=== PATIENT | female | born 1985 | race Caucasian/White ===

== ENCOUNTER 2022-06-14 14:48 | Emergency (ER) | payer OTHER, SELFPAY ==
[2022-06-14] VITALS (26 sets, daily range): BP systolic 95–126; BP diastolic 60–79; PULSE 71–97; RESP 13–29; TEMP 37; O2SAT 94–99
--- NOTE | ~2022-06-14 | XR_ITS ---
EXAMINATION: XR chest 2V DATE: 06/14/2022 15:39 INDICATION: Chest pain TECHNIQUE: Frontal and lateral views of the chest are obtained COMPARISON: None available FINDINGS: The lungs are free of acute opacities. No pleural effusion or pneumothorax. The cardiomedia stinal silhouette is normal. There is mild thoracic spondylosis. Surgical clips in the right upper qu adrant are likely from prior cholecystectomy. IMPRESSION: 1. No acute cardiopulmonary abnormality. Reviewed, dictated and finalized at location F.
--- NOTE | ~2022-06-14 | CT_ITS ---
EXAMINATION: CTA chest PE protocol DATE: 06/14/2022 19:13 INDICATION: Chest pain TECHNIQUE: Computed tomography angiography (CTA) of the chest was performed with 100 mL Omnipaque-350 intravenous contrast timed to evaluate the pulmonary arteries. Coronal maximum intensity projection 3D-reconstructions were created by the technologist. The dose-length product (DLP) was 359.56 mGy-cm. Automated exposure control and iterative reconstruction technique were employed. COMPARISON: None. FINDINGS: The pulmonary arteries are well-opacified. No pulmonary embolism is identified. The lungs a re free of acute opacities. No pleural effusion or pneumothorax. No pathologically enlarged thoracic lymph nodes are identified. The heart size is normal. IMPRESSION: 1. No pulmonary embolism or acute cardiopulmonary abnormality. Reviewed, dictated and finalized at location F.
--- NOTE | 2022-06-14 14:56 | ECG_ITS ---
Measurements Intervals [place] Rate: 92 P: 33 ME: 131 QRS: 71 QRSD: 86 T: 38 QT: 357 QTc: 444 Interpretive Statements SINUS RHYTHM NO PREVIOUS ECG AVAILABLE FOR COMPARISON Electronically Signed On 06-14-2022 19:49:50 CDT by Brandie Rainey M.D.
[2022-06-14 15:04] LABS: Basophils Percent Auto 0.3 % (0.2-1.2); Eosinophils Absolute Auto 0.1 K/mm3 (0-0.3); Hematocrit 37.6 % (37.0-47.0); Hemoglobin 12.2 g/dL (12.0-15.0); Immature Granulocyte Absolute 0.01 K/mm3 (0.00-0.031); Immature Granulocyte Percent A 0.2 % (0-0.5); Lymphocytes Absolute Auto 0.82 K/mm3 (0.9-3.2); Lymphocytes Percent Auto 12.6 % (18.3-44.2); Mean Corpuscular HGB Conc 32.4 g/dl (32-36); Mean Corpuscular Hemoglobin 28.1 pg (26-34); Mean Corpuscular Volume 86.6 fl (80-100); Mean Platelet Volume 11.9 fl (7.4-10.4); Monocytes Absolute Auto 0.5 K/mm3 (0.1-0.6); Monocytes Percent Auto 7.7 % (2.6-8.5); Neutrophils Percent Auto 77.2 % (45.5-73.1); Platelet Count Result 175 k/mm3 (150-375); Red Blood Count 4.34 M/mm3 (4.2-5.4); Red Cell Distribution Width 13.4 % (11.5-14.5); White Blood Count 6.5 K/mm3 (4.5-10.0)
[2022-06-14 15:14] LABS: Alanine Aminotransferase 20 U/L (6-35); Albumin Level 4.3 g/dL (3.5-5.1); Alkaline Phosphatase 53 U/L (38-126); Anion Gap 8 mmol/L (8-16); Aspartate Amino Transferase 22 U/L (14-36); Bilirubin,Total 0.4 mg/dL (0.2-1.3); Blood Urea Nitrogen 16 mg/dL (7-17); Calcium 8.3 mg/dL (8.4-10.2); Carbon Dioxide 26 mmol/L (22-30); Chloride 104 mmol/L (98-107); Estimated CRCL calculation 85 ml/min; Estimated Glomerular Filt Rate > 60; Glucose 111 mg/dL (65-110); Lipase 78 U/L (23-300); Potassium 3.4 mmol/L (3.4-5.0); Sodium 138 mmol/L (137-145)
[2022-06-14 15:26] LABS: Troponin I < 0.012 ng/mL (0.000-0.034)
[2022-06-14 15:33] LABS: INR 1.1; Partial Thromboplastin Time 25.6 SECONDS (22.3-36.8); Prothrombin Time 13.5 Seconds (11.1-14.7)
--- NOTE | 2022-06-14 17:04 | ED.CHESTPAIN ---
HPI - Chest Pain General Chief Complaint: Chest Pain <GUNNAR Russell Last Filed: 06/14/22 20:42> Stated Complaint: cp <GUNNAR Russell Last Filed: 06/14/22 20:42> Time Seen by Provider: 06/14/22 16:59 <GUNNAR Russell Last Filed: 06/14/22 20:42> Source: patient <GUNNAR Russell Last Filed: 06/14/22 20:42> Mode of arrival: ambulatory <GUNNAR Russell Last Filed: 06/14/22 20:42> Limitations: no limitations <GUNNAR Russell Last Filed: 06/14/22 20:42> History of Present Illness HPI narrative: Patient is a 36 y/o female who presents to the ED with c/o mid upper back pain, radiating through to her chest. Patient reports the pain began around 2:30 PM today. She took Aleve at the onset of her pain and denies any pain by the time of my evaluation. She states she has had this pain intermittently over the past 1.5 months, occurring at least once a week. Today's pain seemed worse, which prompted her presentation. She denies any other symptoms. Denies pleuritic pain, shortness of breath, nausea, vomiting, abdominal pain, low back pain, fevers, recent cough or cold symptoms. Patient is on hormonal control. Denies any BLE pain or edema. Denies recent long distance travel, surgery, immobilization. No history of hypertension, hyperlipidemia, smoking, family history of heart disease. <GUNNAR Russell Last Filed: 06/14/22 20:42> Related Data Allergies/Adverse Reactions: Allergies Allergy/AdvReac Type Severity Reaction Status Date / Time cephalexin Allergy Intermediate Verified 08/04/15 11:01 <GUNNAR Russell Last Filed: 06/14/22 20:42> Review of Systems Review of Systems: CONSTITUTIONAL: Denies fever, chills, or sweats. ENT: Denies rhinorrhea, congestion, sore throat. CARDIOVASCULAR: Reports anterior chest pain. Denies BLE edema. RESPIRATORY: Denies cough, pleuritic pain, or dyspnea. GASTROINTESTINAL: Denies abdominal pain, nausea, vomiting, or diarrhea. MUSCULOSKELETAL: Reports mid upper back pain, radiating through to her chest. Denies BLE pain. <Edna Srivastava PA-C - Last Filed: 06/14/22 20:42> All systems reviewed & are unremarkable except as noted in HPI and below <Edna Srivastava PA-C - Last Filed: 06/14/22 20:42> PMFSH Past Medical History Medical History: Medical History (Updated 06/15/22 @ 00:00 by Shannon Sims) No pertinent past medical history <Edna Srivastava PA-C - Last Filed: 06/14/22 20:42> Surgical History Surgical History: Surgical History (Updated 06/14/22 @ 17:24 by Edna Srivastava PA-C) History of section History of cholecystectomy <Edna Srivastava PA-C - Last Filed: 06/14/22 20:42> Social History Social History: Social History (Updated 06/14/22 @ 17:25 by Edna Srivastava PA-C) Smoking status: Never smoker <Edna Srivastava PA-C - Last Filed: 06/14/22 20:42> Exam Narrative: GENERAL: Well appearing, well-nourished, non-toxic, in no acute distress. HEAD: Normocephalic, atraumatic. NECK: Supple. No adenopathy, no masses. RESPIRATORY: Airway patent, respirations nonlabored. Clear to auscultation bilaterally, no rales, rhonchi, wheezing. No splinting. CARDIOVASCULAR: Regular rate and rhythm without murmurs, rubs, or gallops. Peripheral pulses 2+ and equal bilaterally. ABDOMINAL: Soft, nontender, nondistended, no hepatosplenomegaly. Normoactive BS. MUSCULOSKELETAL: Moves all extremities. Strength/ROM intact without gross deformities. No midline cervical, thoracic, or lumbar spinal tenderness. No reproducible thoracic paraspinal muscle tenderness. No anterior chest wall tenderness. No edema. No calf tenderness. SKIN: Warm, dry, normal color. No rashes. NEURO: A&O X3. Speech clear. Cranial nerves II-XII grossly intact. Steady gait. No ataxic movements. PSYCHIATRIC: Appropriate moo
[2022-06-14 17:40] LABS: D Dimer 0.79 ug/mL (<0.48)
[2022-06-14 18:15] LABS: Troponin I < 0.012 ng/mL (0.000-0.034)
== END 2022-06-14 20:30 | disposition home or self-care (01) ==
PROVIDERS: Emergency Medicine; Physician Assistant; Emergency Provider Emergency Medicine
DX: S29.012A Strain of muscle and tendon of back wall of thorax, initial encounter (principal); R07.89 Other chest pain; X58.XXXA Exposure to other specified factors, initial encounter
CPT/HCPCS: 36415; 71046; 71275; 80053; 83690; 84484; 85025; 85380; 85610; 85730; 93005; 99284; Q9967